=== PATIENT | male | born 1950 | race African-American/Black ===

== ENCOUNTER 2017-01-12 22:22 | Emergency (ER) | payer OTHER ==
[2017-01-12 22:32] VITALS: BP 104/71
--- NOTE | 2017-01-12 23:10 | ED GENERAL ADULT ---
History of Present Illness General Chief Complaint: General Adult Stated Complaint: "NEEDS INSULIN" Source: patient Exam Limitations: no limitations Vital Signs & Intake/Output Vital Signs & Intake/Output Vital Signs Date Time Temp Pulse Resp B/P Pulse O2 O2 Flow FiO2 Ox Delivery Rate 01/12 2232 79 20 104/71 98 ED Intake and Output 01/13 0000 01/12 1200 Intake Total Output Total Balance Patient 215 lb Weight Allergies Coded Allergies: MDX - Codeine (CODEINE) (Mild, ABDOMINAL PAIN 07/05/12) Reconcile Medications No Known Home Medications Triage Note: PER PT WEANED OFF INSULIN AND METFORMIN PER PT WENT TO [facility] TODAY AND THE "STUPID PORTUG[place] TUTOR ONLY GAVE ME 7 UNITS OF LANTUS, I NEED 15. BS IN TRIAGE 221. PT REPORTS HIS BOTTLE . EDUCATED HE SHOULD NOT TAKE INSULIN WITHOUT DR ORDER. WANTS A SHOT AND BILL [facility] AND GIVE ME A SCRIPT. Triage Nurses Notes Reviewed? yes HPI: This patient is a 66-year-old male with past medical history including diabetes who presented to the emergency department today requesting 10 units of Lantus. The patient reported that he was recently evaluated by his primary care physician who told him that his A1c was low enough that he could be weaned off of his Lantus. He was later told to stop taking his metformin. The patient reported that he ate some candy recently and his blood sugar has been high. He reported that today was about 345. He was given 7 units of regular insulin at the [facility]. The patient reported that it did not do anything. He reported that he has a dry mouth. He is requesting 10 units of Lantus which with his regular dose. He denied any headaches, fevers, chills, visual changes, chest pain, difficulty breathing, abdominal pain, or nausea. (KERRY TREJO PA-C) Past History Travel History Traveled to [place] past 21 day No Medical History Any Pertinent Medical History? see below for history Neurological: NONE EENT: NONE Cardiovascular: NONE Respiratory: NONE Gastrointestinal: NONE Hepatic: NONE Renal: NONE Musculoskeletal: NONE Psychiatric: NONE Endocrine: diabetes Surgical History Surgical History: non-contributory Psychosocial History What is your primary language Niuean Tobacco Use: Never used Family History Hx Contributory? No (KERRY TREJO PA-C) Review of Systems Review of Systems Constitutional: Reports: no symptoms. EENTM: Reports: see HPI. Respiratory: Reports: no symptoms. Cardiovascular: Reports: no symptoms. GI: Reports: no symptoms. Genitourinary: Reports: no symptoms. Musculoskeletal: Reports: no symptoms. Skin: Reports: no symptoms. Neurological/Psychological: Reports: see HPI. All Other Systems: Reviewed and Negative (KERRY TREJO PA-C) Physical Exam Physical Exam General Appearance: well developed/nourished, no apparent distress, alert, awake Comments: Well-developed well-nourished person in no acute distress HEENT: Head normocephalic, moist mucous membranes Neck: Supple Back: Normal gait Respiratory: No respiratory distress. Speaking in full sentences Extremities: No edema, full range of motion Neuro: Alert and oriented x3 Psych: Mood affect normal, normal memory normal judgment. Skin: Warm and dry, no rash on exposed skin Core Measures ACS in differential dx? No CVA/TIA Diagnosis: No Severe Sepsis Present: No Septic Shock Present: No (KERRY TREJO PA-C) Progress Differential Diagnoses I considered the following diagnoses in my evaluation of the patient: [ Medication refill, medication seeking, medication overdose, hyperglycemia, hypoglycemia, DKA] Plan of Care: Current Medications Sig/Betsey Start time Last Medication Dose Stop Time Status Admin Insulin Detemir 5 UNITS ONCE ONE 01/12 2315 UNVr (Levemir) 01/12 2316 Initial ED EKG: none Comments: 01/12/2017 11:08:53 PM: Discussed this patient with Dr. Rodriguez. He recommended giving 5 units of Lantus. The patient is in agreement with the plan. Stable for discharge home. (KERRY TREJO PA-C) Departure Departure Disposition: HOME OR SELF CARE Condition: Stable Clinical Impression Primary Impression: Medication requested Referrals: BILLY RUIZ MD (PCP/Family) Additional Instructions: Please follow-up with your primary care physician. Return for any worsening symptoms or concerns. Departure Forms: Customer Survey General Discharge Information Prescriptions: Current Visit Scripts No Known Home Medications (KERRY TREJO PA-C) PA/ROLLING CHAIR PUSHER Co-Sign Statement Statement: ED Attending supervision documentation- [] I saw and evaluated the patient. I have also reviewed all the pertinent lab results and diagnostic results. I agree with the findings and the plan of care as documented in the PA's/ROLLING CHAIR PUSHER's documentation. [x] I have reviewed the ED Record and agree with the PA's/ROLLING CHAIR PUSHER's documentation. [] Additions or exceptions (if any) to the PAs/ROLLING CHAIR PUSHER's note and plan are summarized below: [] (YANE CRAMER,NAY Wright) Critical Care Note Critical Care Note Critical Care Time: non-applicable (MAYA THOMAS,KERRY)
== END 2017-01-12 23:32 ==
LOC: ERH 22:22
DX: E11.65 Type 2 diabetes mellitus with hyperglycemia (principal)
CPT/HCPCS: 96372